=== PATIENT | male | born 1955 | race Asian ===

== ENCOUNTER 2016-07-20 14:28 | Inpatient (IN) | payer SELFPAY ==
[2016-07-20] MEDS ORDERED: MULTIVITAMINS1 EAC6 PO (14:47)
[2016-07-20 15:04] LABS: BASO % 0.2 % (0-2); EOS % 0.6 % (0-7); EOSINOPHIL ABSOLUTE COUNT 0.1 tho/cmm (0.0-0.7); HCT-HEMATOCRIT 47.8 % (36.0-53.5); HGB-HEMOGLOBIN 16.6 gm/dl (13.5-17.0); LYMPH % 12.3 % (20-45); LYMPH ABSOLUTE COUNT 1.2 tho/cmm (0.8-4.5); MCH (MEAN CORPUSCULAR HGB) 30.5 pg (28.0-32.0); MCHC MEAN CORPUSCULAR HGB CONC 34.7 % (32.0-36.0); MCV (MEAN CELL VOLUME) 87.9 fl (82.0-96.0); MEAN PLATELET VOLUME 13.2 cmc (9.4-12.4); MONO % 8.1 % (0-12); MONOCYTE ABSOLUTE COUNT 0.8 tho/cmm (0.0-1.2); NEUTROPHIL ABSOLUTE COUNT 7.9 tho/cmm (1.6-8.0); NEUTROPHIL-AUTOMATED 7.9 tho/cmm (1.6-8.0); NEUTROPHILS % 78.8 % (40-80); PLATELET COUNT 116 tho/cmm (150-450); RED BLOOD COUNT 5.44 mil/cmm (4.40-5.70); RED CELL DISTRIBUTION WIDTH 12.5 % (12.4-16.4); WHITE BLOOD COUNT 10.1 tho/cmm (4.0-10.0)
[2016-07-20 15:05] LABS: KETONE-BETA (WHOLE BLOOD) 0.3 mmol/L (0.0-0.6)
[2016-07-20 15:19] LABS: ALB/GLOB RATIO 0.9 (0.8-2.0); ALBUMIN 3.6 g/dl (3.5-5.0); ALKALINE PHOSPHATASE 129 U/L (33-138); ALT/SGPT 67 U/L (12-78); ANION GAP 17 mmol/L (0-20); AST/SGOT 46 U/L (10-40); BILIRUBIN,TOTAL 0.9 mg/dl (0.0-1.5); BLOOD UREA NITROGEN 39 mg/dl (6-24); CALCIUM 8.5 mg/dl (8.5-10.5); CARBON DIOXIDE-VENOUS 26 mmol/L (22-32); CHLORIDE 88 mmol/l (96-110); CREATININE 2.09 mg/dl (0.60-1.30); MAGNESIUM 2.8 mg/dl (1.8-2.6); POTASSIUM 5.9 mmol/L (3.7-5.1); SODIUM 125 mmol/L (135-145); eGFR VALUE FOR BLACK 38 mL/Min
[2016-07-20 15:26] LABS: URINE LEUKOCYTE ESTERASE NEGATIVE (NEG); URINE PROTEIN NEGATIVE (NEG)
[2016-07-20 15:27] LABS: URINE APPEARANCE CLEAR; URINE BILIRUBIN NEGATIVE (NEG); URINE BLOOD NEGATIVE (NEG); URINE COLOR YELLOW; URINE GLUCOSE (UA) LARGE (NEG); URINE KETONE NEGATIVE (NEG); URINE NITRITE NEGATIVE (NEG)
[2016-07-20 15:33] LABS: GLUCOSE 958 mg/dL (70-110)
[2016-07-20 18:52] LABS: OSMOLALITY 328 mOsm/kg (275-295)
[2016-07-21 01:19] LABS: BLOOD UREA NITROGEN 27 mg/dl (6-24); CALCIUM 7.7 mg/dl (8.5-10.5); CARBON DIOXIDE-VENOUS 26 mmol/L (22-32); CHLORIDE 107 mmol/l (96-110); SODIUM 142 mmol/L (135-145); eGFR VALUE FOR BLACK 58 mL/Min
[2016-07-21 01:25] LABS: ANION GAP 13 mmol/L (0-20); CREATININE 1.48 mg/dl (0.60-1.30); GLUCOSE 180 mg/dL (70-110); POTASSIUM 3.8 mmol/L (3.7-5.1)
[2016-07-21 04:28] LABS: BASO % 0.3 % (0-2); EOS % 5.5 % (0-7); EOSINOPHIL ABSOLUTE COUNT 0.5 tho/cmm (0.0-0.7); HCT-HEMATOCRIT 39.3 % (36.0-53.5); HGB-HEMOGLOBIN 13.9 gm/dl (13.5-17.0); IMMATURE GRANULOCYTES ABSOLUTE 0.02 tho/cmm (0-0.03); IMMATURE GRANULOCYTES PERCENT 0.2 % (0-0.3); LYMPH ABSOLUTE COUNT 3.2 tho/cmm (0.8-4.5); MCH (MEAN CORPUSCULAR HGB) 31.2 pg (28.0-32.0); MCHC MEAN CORPUSCULAR HGB CONC 35.4 % (32.0-36.0); MCV (MEAN CELL VOLUME) 88.1 fl (82.0-96.0); MEAN PLATELET VOLUME 12.8 cmc (9.4-12.4); MONO % 7.2 % (0-12); MONOCYTE ABSOLUTE COUNT 0.7 tho/cmm (0.0-1.2); NEUTROPHILS % 52.8 % (40-80); PLATELET COUNT 107 tho/cmm (150-450); RED BLOOD COUNT 4.46 mil/cmm (4.40-5.70); RED CELL DISTRIBUTION WIDTH 12.5 % (12.4-16.4); WHITE BLOOD COUNT 9.5 tho/cmm (4.0-10.0)
[2016-07-21 04:36] LABS: ALBUMIN 2.9 g/dl (3.5-5.0); ALKALINE PHOSPHATASE 87 U/L (33-138); ALT/SGPT 45 U/L (12-78); ANION GAP 11 mmol/L (0-20); AST/SGOT 29 U/L (10-40); BILIRUBIN,TOTAL 0.8 mg/dl (0.0-1.5); BLOOD UREA NITROGEN 23 mg/dl (6-24); CALCIUM 7.5 mg/dl (8.5-10.5); CARBON DIOXIDE-VENOUS 27 mmol/L (22-32); CHLORIDE 108 mmol/l (96-110); CREATININE 1.24 mg/dl (0.60-1.30); GLUCOSE 192 mg/dL (70-110); MAGNESIUM 2.4 mg/dl (1.8-2.6); POTASSIUM 4.2 mmol/L (3.7-5.1); SODIUM 142 mmol/L (135-145); eGFR VALUE FOR BLACK 72 mL/Min
[2016-07-21 08:17] LABS: ANION GAP 11 mmol/L (0-20); BLOOD UREA NITROGEN 21 mg/dl (6-24); CALCIUM 7.3 mg/dl (8.5-10.5); CARBON DIOXIDE-VENOUS 25 mmol/L (22-32); CHLORIDE 111 mmol/l (96-110); GLUCOSE 201 mg/dL (70-110); POTASSIUM 3.9 mmol/L (3.7-5.1); SODIUM 143 mmol/L (135-145); eGFR VALUE FOR BLACK 75 mL/Min
[2016-07-21] MEDS ORDERED: PROCARDIA10 M1 PO (08:50)
[2016-07-21 12:37] LABS: ANION GAP 12 mmol/L (0-20); BLOOD UREA NITROGEN 18 mg/dl (6-24); CALCIUM 7.5 mg/dl (8.5-10.5); CARBON DIOXIDE-VENOUS 24 mmol/L (22-32); CHLORIDE 110 mmol/l (96-110); CREATININE 1.13 mg/dl (0.60-1.30); GLUCOSE 181 mg/dL (70-110); MAGNESIUM 2.3 mg/dl (1.8-2.6); POTASSIUM 4.1 mmol/L (3.7-5.1); SODIUM 142 mmol/L (135-145); eGFR VALUE FOR BLACK 80 mL/Min
[2016-07-21 12:39] LABS: PHOSPHOROUS 1.4 mg/dl (2.5-4.9)
[2016-07-21 16:18] LABS: ANION GAP 11 mmol/L (0-20); BLOOD UREA NITROGEN 17 mg/dl (6-24); CALCIUM 7.1 mg/dl (8.5-10.5); CARBON DIOXIDE-VENOUS 24 mmol/L (22-32); CHLORIDE 109 mmol/l (96-110); CREATININE 1.21 mg/dl (0.60-1.30); POTASSIUM 4.3 mmol/L (3.7-5.1); SODIUM 140 mmol/L (135-145); eGFR VALUE FOR BLACK 74 mL/Min
[2016-07-21 16:25] LABS: GLUCOSE 304 mg/dL (70-110)
[2016-07-21 20:54] LABS: ANION GAP 12 mmol/L (0-20); BLOOD UREA NITROGEN 15 mg/dl (6-24); CALCIUM 7.3 mg/dl (8.5-10.5); CARBON DIOXIDE-VENOUS 23 mmol/L (22-32); CHLORIDE 108 mmol/l (96-110); CREATININE 1.18 mg/dl (0.60-1.30); GLUCOSE 309 mg/dL (70-110); POTASSIUM 4.2 mmol/L (3.7-5.1); SODIUM 139 mmol/L (135-145); eGFR VALUE FOR BLACK 76 mL/Min
[2016-07-22 00:38] LABS: PHOSPHOROUS 1.5 mg/dl (2.5-4.9)
[2016-07-22 00:43] LABS: MAGNESIUM 2.1 mg/dl (1.8-2.6)
[2016-07-22 05:21] LABS: BASO % 0.3 % (0-2); EOS % 4.5 % (0-7); EOSINOPHIL ABSOLUTE COUNT 0.4 tho/cmm (0.0-0.7); HCT-HEMATOCRIT 39.2 % (36.0-53.5); HGB-HEMOGLOBIN 13.5 gm/dl (13.5-17.0); IMMATURE GRANULOCYTES ABSOLUTE 0.02 tho/cmm (0-0.03); IMMATURE GRANULOCYTES PERCENT 0.2 % (0-0.3); LYMPH % 29.7 % (20-45); LYMPH ABSOLUTE COUNT 2.8 tho/cmm (0.8-4.5); MCH (MEAN CORPUSCULAR HGB) 30.5 pg (28.0-32.0); MCHC MEAN CORPUSCULAR HGB CONC 34.4 % (32.0-36.0); MCV (MEAN CELL VOLUME) 88.7 fl (82.0-96.0); MEAN PLATELET VOLUME 12.5 cmc (9.4-12.4); MONO % 7.5 % (0-12); MONOCYTE ABSOLUTE COUNT 0.7 tho/cmm (0.0-1.2); NEUTROPHIL ABSOLUTE COUNT 5.5 tho/cmm (1.6-8.0); NEUTROPHIL-AUTOMATED 5.5 tho/cmm (1.6-8.0); NEUTROPHILS % 57.8 % (40-80); PLATELET COUNT 89 tho/cmm (150-450); RED BLOOD COUNT 4.42 mil/cmm (4.40-5.70); RED CELL DISTRIBUTION WIDTH 12.5 % (12.4-16.4); WHITE BLOOD COUNT 9.5 tho/cmm (4.0-10.0)
[2016-07-22 05:35] LABS: ANION GAP 11 mmol/L (0-20); BLOOD UREA NITROGEN 11 mg/dl (6-24); CALCIUM 7.2 mg/dl (8.5-10.5); CARBON DIOXIDE-VENOUS 24 mmol/L (22-32); CHLORIDE 112 mmol/l (96-110); CHOLESTEROL 116 mg/dl (120-200); GLUCOSE 165 mg/dL (70-110); HDL CHOLESTEROL 27 mg/dl (40-60); LDL CHOLESTEROL 57 mg/dl (0-99); POTASSIUM 3.8 mmol/L (3.7-5.1); SODIUM 143 mmol/L (135-145); VLDL 33 mg/dl (0-30); eGFR VALUE FOR BLACK >90 mL/Min
[2016-07-22 05:36] LABS: TRIGLYCERIDES 163 mg/dl (<149)
[2016-07-22 13:04] LABS: MAGNESIUM 1.9 mg/dl (1.8-2.6); PHOSPHOROUS 1.4 mg/dl (2.5-4.9)
--- NOTE | 2016-07-22 19:24 | NUR ---
VIRTUAL CARE NOTE: ASSESSMENT DEFERRED. PT. SLEEPING.
[2016-07-23 05:19] LABS: ALB/GLOB RATIO 0.9 (0.8-2.0); ALBUMIN 2.8 g/dl (3.5-5.0); ALKALINE PHOSPHATASE 75 U/L (33-138); ALT/SGPT 34 U/L (12-78); ANION GAP 12 mmol/L (0-20); AST/SGOT 22 U/L (10-40); BILIRUBIN,TOTAL 0.4 mg/dl (0.0-1.5); BLOOD UREA NITROGEN 10 mg/dl (6-24); CALCIUM 7.7 mg/dl (8.5-10.5); CARBON DIOXIDE-VENOUS 24 mmol/L (22-32); CHLORIDE 110 mmol/l (96-110); CREATININE 1.11 mg/dl (0.60-1.30); GLUCOSE 185 mg/dL (70-110); MAGNESIUM 2.1 mg/dl (1.8-2.6); PHOSPHOROUS 1.2 mg/dl (2.5-4.9); POTASSIUM 3.8 mmol/L (3.7-5.1); SODIUM 142 mmol/L (135-145); eGFR VALUE FOR BLACK 82 mL/Min
--- NOTE | 2016-07-23 13:30 | NUR ---
VIRTUAL CARE NOTE: ROUNDED ON PT COUPLE TIMES TODAY WITH SOCIAL WORKS. EXPLAINED TO DISCHARGE PROCESS, DM EDUCATION, AND PLAN OF CARE. QUESTIONS ANSWERED PT DOES NOT HAVE FURTHER QUESTIONS OR CONCERNS.
[2016-07-24 06:06] LABS: MAGNESIUM 2.1 mg/dl (1.8-2.6); PHOSPHOROUS 1.7 mg/dl (2.5-4.9)
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
[2016-07-25 06:54] LABS: MAGNESIUM 1.7 mg/dl (1.8-2.6); PHOSPHOROUS 2.1 mg/dl (2.5-4.9)
[2016-07-25 07:02] LABS: ANION GAP 14 mmol/L (0-20); BLOOD UREA NITROGEN 10 mg/dl (6-24); CALCIUM 7.7 mg/dl (8.5-10.5); CARBON DIOXIDE-VENOUS 21 mmol/L (22-32); CHLORIDE 109 mmol/l (96-110); CREATININE 1.08 mg/dl (0.60-1.30); GLUCOSE 310 mg/dL (70-110); POTASSIUM 4.2 mmol/L (3.7-5.1); SODIUM 140 mmol/L (135-145); eGFR VALUE FOR BLACK 85 mL/Min
--- NOTE | 2016-07-25 09:30 | NUR ---
VIRTUAL CARE NOTE: ROUNDED WITH IN THE ROOM IN [place] LANGUAGE. DIABETIC INSTRUCTIONS GIVEN TO PT WITH INFORMING PT IF NEW MEDICATION. WILL PLAN ON DC HOME LATER TODAY AFTER PT GETTING DIABETIC SUPPLIES AND TEACHING DONE. PT WAS TOLD TO F/U CLOSELY WITH DOCTOR AT [facility], TAKING MEDICATION, AND CHECKING BLOOD SUGAR AT HOME.
--- NOTE | 2016-07-25 21:07 | NUR ---
VN ROUNDING-DID NOT ROUND ON PATIENT HE SPEAKS ICELANDIC AND HANG THE DAY VN WAS JUST UP IN ROOM AT 1800 DOING SOME DIABETES TEACHING, ETC. PLEASE SEE HER DOCUMENTATION
[2016-07-26 09:57] LABS: ANION GAP 15 mmol/L (0-20); BLOOD UREA NITROGEN 10 mg/dl (6-24); CALCIUM 8.6 mg/dl (8.5-10.5); CARBON DIOXIDE-VENOUS 23 mmol/L (22-32); CHLORIDE 108 mmol/l (96-110); CREATININE 1.14 mg/dl (0.60-1.30); GLUCOSE 230 mg/dL (70-110); MAGNESIUM 1.8 mg/dl (1.8-2.6); POTASSIUM 4.2 mmol/L (3.7-5.1); SODIUM 142 mmol/L (135-145); eGFR VALUE FOR BLACK 79 mL/Min
[2016-07-26 10:00] LABS: TSH-THYROID STIMULATING HORM. 1.39 uIU/ml (0.40-3.80)
[2016-07-26] MEDS ORDERED: LIPITOR40 M1 PO (15:44)
[2016-07-26] MEDS ORDERED: GLUCOPHAGE1000 M1 PO (15:45)
[2016-07-26] MEDS ORDERED: PRINIVIL10 M1 PO (15:45)
[2016-07-26] MEDS ORDERED: ASPIRIN81 M1 PO (15:46)
[2016-07-26] MEDS ORDERED: ELIQUIS5 M1 PO (15:46)
[2016-07-26] MEDS ORDERED: LEVEMIR100 UNITS/ SC (15:47)
[2016-07-26] MEDS ORDERED: MAGOX 400400 M1 PO (15:50)
== END 2016-07-26 18:45 | DRG 639 ==
LOC: EDMED 14:28 → EMR2 17:22 → CCU 22:13 → 5WD 07-22 15:40
PROVIDERS: Emergency Medicine; Family Medicine; Hospitalist; ADMIT Internal Medicine
DX: E11.65 Type 2 diabetes mellitus with hyperglycemia (principal); Z79.4 Long term (current) use of insulin
CPT/HCPCS: C1894; C8929; G0009; J0360; J1644; J1815; J2250; J3010; J3480; J7030; Q9967